=== PATIENT | female | born 1930 | race Caucasian/White ===

== ENCOUNTER → 2017-08-22 | Outpatient (CLI) | payer MEDICARE ==
[~2017-08-22] MED LIST: ALEVE 220MG220 MG PO; ALOE VERA1 CAP PO; AMLODIPINE5 MG PO; ASPIRIN 32325 MG/TAB PO; ASPIRIN E.C. 8181 MG PO; ATIVAN0.5 MG PO; B-COMPLEX VITAM1 TAB PO; BETAPACE 120MG120 MG PO; BRILINTA90 MG PO; BYSTOLIC5 MG PO; CHOLESTEROL MED PO; CLOPIDOGREL PO; COENZYME Q-1010 MG PO; COQ10250 MG PO; DARVON; DIOVAN 160MG160 MG PO; DIOVAN160 MG PO; DIOVAN80 M1 PO; FLAX OIL1000 MG PO; FLORA-Q1 CAP PO; HAIR FORMULA EX1 TAB PO; IMDUR 30MG30 MG/TAB PO; IMDUR ER30 MG PO; IMMUNE BOOSTER1 PDS PO; LIVALO PO; LIVALO1 MG PO; LIVALO2 MG PO; LIVALO4 MG PO; LOPRESSOR 225 MG/TAB PO; MULTAQ400 MG PO; MVI PO; NEXIUM40 MG PO; NITROQUICK0.4 MG SL; NITROSTAT0.4 MG/TAB SL; NORVASC 5MG5 MG/TAB PO; NORVASC2.5 MG PO; PANTOPRAZOLE SO40 MG PO; PLAVIX 75MG TAB75 MG PO; PRAVACHOL10 MG PO; PRILOSEC 20MG20 MG PO; PROBIOTIC FORMU1 CAP PO; PROBIOTICA100 MILLIO PO; PROTONIX 40MG T40 MG PO; PROTONIX40 MG PO; REGLAN 10MG10 MG/TAB PO; SIMVASTATIN20 MG PO; STRESS B COMPLE1 TAB PO; TESSALON PERLE100 MG PO; TYLENOL 325MG325 MG PO; ULTRAM50 MG PO; VITAMIN B6100 MG PO; VITAMIN D 400400 IU PO; VITAMIN D31000 IU PO; WHEATGRASS PO; ZINC B.E.C.1 TAB PO; ZOCOR 20MG20 MG PO; ZYRTEC 10MG10 MG PO; [UNRECOGNIZED DRUG - OTHER] PO; high blood pressure
[2017-08-22 11:38] LABS: BASO # 0.1 (0.0-0.2); BASO % 1.2 % (0.0-2.0); EOS # 0.3 (0.0-0.7); EOS % 5.4 % (0-4.0); GRAN # 3.5 (1.4-6.5); GRAN % 58.2 % (42.2-75.2); LYMPH # 1.5 (1.2-3.4); LYMPH % 25.6 % (20.0-51.0); MEAN CELL VOLUME 102 fl (80.0-100.0); MEAN CORPUSCULAR HGB CONC 33 g/dl (33.0-37.0); MEAN PLATELET VOLUME 10.2 fl (7.4-10.4); MONO # 0.5 (0.1-0.6); MONO % 9.1 % (1.7-9.3); PLATELET COUNT 235 K/mm3 (130-400); RED BLOOD COUNT 2.86 M/mm3 (4.10-5.30); REDCELL DISTRIBUTION WIDTH-CV 13.4 % (11.5-14.5)
[2017-08-22 11:40] LABS: HEMATOCRIT 29.2 % (37.0-47.0); HEMOGLOBIN 9.5 g/dl (12.5-16.0); MEAN CORPUSCULAR HEMOGLOBIN 33 pg (27.0-31.0)
[2017-08-22 12:03] LABS: ALBUMIN 2.5 gm/dL (3.5-5.0); BILIRUBIN,TOTAL 0.4 mg/dL (0.0-1.0); CALCIUM 9.1 mg/dL (8.4-10.2); CHOLESTEROL RISK RATIO 6.4; CREATININE, serum 1.38 mg/dL (0.52-1.25); POTASSIUM 4.5 mmol/L (3.4-5.0)
[2017-08-22 12:50] LABS: THYROID STIMULATING HORMONE 4.2 uIU/mL (0.465-4.680)
== END ==
LOC: COL.LAB 11:14
PROVIDERS: Internal Medicine
DX: F32.1 Major depressive disorder, single episode, moderate (principal); M25.511 Pain in right shoulder; M25.561 Pain in right knee